=== PATIENT | female | born 1985 | race Caucasian/White ===

== ENCOUNTER → 2022-06-15 10:26 | Outpatient (BNVA) | payer BC, MEDICAID, SELFPAY | PROVIDERS: Visit Provider Nurse Practitioner Family | DX: R51.9 Headache, unspecified (principal) | CPT/HCPCS: 80053; 84443; 85025 ==

== ENCOUNTER 2022-06-29 15:06 | Emergency (ER) | payer BC, MEDICAID, SELFPAY ==
[2022-06-29 15:34] VITALS: BP 144/83; PULSE 74; RESP 16; TEMP 36.6; O2SAT 99; BMI 43.0
== END 2022-06-29 19:04 | disposition left against medical advice (07) ==
PROVIDERS: Emergency Provider Family Medicine
DX: Z53.21 Procedure and treatment not carried out due to patient leaving prior to being seen by health care provider (principal); R51.9 Headache, unspecified

== ENCOUNTER → 2022-10-31 09:01 | Outpatient (BNVA) | payer MEDICAID, SELFPAY | PROVIDERS: Visit Provider Nurse Practitioner Family | DX: N91.2 Amenorrhea, unspecified (principal); O03.9 Complete or unspecified spontaneous abortion without complication | CPT/HCPCS: 80053; 84702 ==

== ENCOUNTER 2023-09-20 14:04 | Oncology outpatient (recurring) (ONCR) | payer MEDICAID, SELFPAY ==
[2023-09-20 15:51] VITALS: BP 126/81; PULSE 89; RESP 16; TEMP 36.3; O2SAT 98
== END 2023-10-04 23:59 | disposition home or self-care (01) ==
LOC: ONCMED 14:05
PROVIDERS: PCP Family Medicine; Visit Provider Family Medicine
DX: Z67.90 Unspecified blood type, Rh positive; O36.0990 Maternal care for other rhesus isoimmunization, unspecified trimester, not applicable or unspecified
CPT/HCPCS: 80503; 86850; 86870; 86900; 90384

== ENCOUNTER 2023-11-20 19:40 | Outpatient (CLI) | payer MEDICAID, SELFPAY ==
[2023-11-20 20:20] VITALS: BP 111/65; PULSE 85
[2023-11-20 20:35] VITALS: BP 105/65; PULSE 83
[2023-11-20 20:50] VITALS: BP 117/72; PULSE 83
[2023-11-20 20:51] VITALS: TEMP 35.9
[2023-11-20 20:57] VITALS: TEMP 36.6; BMI 47.6
[2023-11-20 21:01] VITALS: BP 117/72; PULSE 83; RESP 15; TEMP 36.6; O2SAT 99
== END 2023-11-20 21:02 | disposition home or self-care (01) ==
LOC: OPOB 19:48 → OBGYN 20:10
PROVIDERS: PCP Nurse Practitioner Family; Visit Provider Family Medicine
DX: O26.899 Other specified pregnancy related conditions, unspecified trimester (principal); Z3A.00 Weeks of gestation of pregnancy not specified; M54.9 Dorsalgia, unspecified
CPT/HCPCS: 59025; 99211

== ENCOUNTER 2023-11-22 13:29 | Outpatient (CLI) | payer MEDICAID, SELFPAY ==
[2023-11-22 13:39] VITALS: RESP 16; TEMP 36.1
[2023-11-22 13:40] VITALS: BMI 48.0
[2023-11-22 14:25] VITALS: BP 113/59; PULSE 98; RESP 16; TEMP 36.1
== END 2023-11-22 14:25 | disposition home or self-care (01) ==
LOC: OPOB 13:29 → OBGYN 13:30
PROVIDERS: PCP Nurse Practitioner Family; Visit Provider Family Medicine
DX: O09.519 Supervision of elderly primigravida, unspecified trimester (principal); Z3A.00 Weeks of gestation of pregnancy not specified
CPT/HCPCS: 59025; 99211

== ENCOUNTER 2023-11-28 12:56 | Outpatient (CLI) | payer MEDICAID, SELFPAY ==
[2023-11-28 13:19] VITALS: BMI 47.8
== END 2023-11-28 14:04 ==
LOC: OPOB 13:00 → OBGYN 13:04
PROVIDERS: PCP Nurse Practitioner Family; Visit Provider Family Medicine
DX: O26.899 Other specified pregnancy related conditions, unspecified trimester (principal); Z3A.00 Weeks of gestation of pregnancy not specified
CPT/HCPCS: 59025; 99211

== ENCOUNTER 2023-12-03 13:11 | Outpatient (CLI) | payer MEDICAID, SELFPAY ==
[2023-12-03 13:16] VITALS: BP 138/85; PULSE 85
[2023-12-03 13:32] VITALS: BP 127/73; PULSE 80
== END 2023-12-03 13:43 | disposition home or self-care (01) ==
LOC: OPOB 13:11 → OBGYN 13:14
PROVIDERS: PCP Nurse Practitioner Family; Visit Provider Family Medicine
DX: O09.519 Supervision of elderly primigravida, unspecified trimester (principal); Z3A.00 Weeks of gestation of pregnancy not specified
CPT/HCPCS: 59025

== ENCOUNTER 2023-12-04 01:31 | Inpatient (IN) | payer MEDICAID, SELFPAY ==
[2023-12-03 23:43] VITALS: TEMP 35.6
[2023-12-03 23:44] VITALS: BP 123/84; PULSE 136
[2023-12-03 23:46] VITALS: TEMP 35.7
[2023-12-04] VITALS (146 sets, daily range): BP systolic 92–144; BP diastolic 49–82; PULSE 70–111; RESP 16–18; TEMP 35.2–36.9; O2SAT 81–100; BMI 40.2; BMI 47.2
[2023-12-04 00:32] LABS: Nitrazine Paper, PH Positive
[2023-12-04 00:36] LABS: Basophils % 0.2 %; Eosinophils % 0.3 %; Hematocrit 34.1 % (36-47); Lymphocytes # 2.4 10^3/uL (0.8-4.8); Lymphocytes % 16.1 %; Mean Corpuscular Hemoglobin 27.5 pg (27-33); Mean Corpuscular Volume 85.9 fl (85-98); Mean Platelet Volume 11.5 fL (7.4-10.4); Monocytes # 0.7 10^3/uL (0.2-0.9); Monocytes % 4.7 %; Neutrophils # 11.75 10^3/uL (1.8-7.7); Neutrophils % 78.1 %; Nucleated Red Blood Cells % 0 %; Platelet Count 352 10^3/cmm (157-399); Red Blood Count 3.97 10^6/uL (3.85-5.65); Red Cell Distribution Width 12.6 % (12.1-15.1); White Blood Count 15.03 10^3/uL (3.29-11.43)
[2023-12-04] MEDS: dextrose 5%-lactated ringers 1,000 ML 125 ML IV ×3 (01:17→20:30)
[2023-12-04] MEDS: vancomycin 2,000 MG/400 ML PIGGYBACK 200 MG IV ×3 (01:17→17:18)
[2023-12-04] MEDS: lactated ringers 1,000 ML 999 ML IV ×4 (01:54→17:18)
--- NOTE | 2023-12-04 02:45 | ANES.PAUD2 ---
Pre-Anesthetic Update Pre-Anesthetic Assessment: Date of Surgery/Procedure: 12/04/23 Any changes to Pre-Anesthetic Assessment?: No Labs Last 48hrs: Short CBC 12/04/23 Range/Units 00:20 WBC 15.03 H (3.29-11.43) 10^ 3/uL Hgb 10.90 L (11.27-16.99) g/ dL Hct 34.1 L (36-47) % MCV 85.9 (85-98) fl Plt Count 352 (157-399) 10^3/c mm Neut % (Auto) 78.1 % Neut # (Auto) 11.75 H (1.8-7.7) 10^3/u L Blood Bank 12/04/23 00:20 Blood Type A Negative Rho(D) Type Negative Antibody Screen Negative Vitals: Temperature 96.6 F L 12/04/23 01:05 Temperature Source Oral 12/04/23 00:08 Pulse Rate 83 12/04/23 02:39 Pulse Rhythm Regular 12/04/23 00:34 Pulse Strength 3+ Normal 12/04/23 00:34 Respiratory Rate 16 12/04/23 00:08 Respiratory Effort Spontaneous, Non- Labored 12/04/23 00:34 Respiratory Depth Normal 12/04/23 00:34 Respiratory Patter n Normal 12/04/23 00:34 Blood Pressure 143/82 12/04/23 02:39 Pulse Oximetry 99 12/04/23 02:37 Oxygen Delivery Me thod Room Air 12/04/23 00:34 Exam: Pre-Anes Outpt Exam: alert, oriented x 3, clear to auscultation bilaterally and regular rate & rhythm Cardiac Studies: No Data to Display
--- NOTE | 2023-12-04 02:46 | ANES.PROC ---
Anesthesia Procedures Procedure/Date: 12/04/23 Epidural: Time Out Performed: Yes Consents Signed: Procedure Consent Consent: requested by attending/covering physician, from patient, risks and benefits reviewed and patient agrees to proceed Lumbar Level: L2-L3 Epidural position: sitting Epidural procedure: sterile prep of area, 1% lidocaine to numb the area, 18 g needle, negative for paresthesia passed (Right resolved), 1.5% xylocaine 1:200k epi, 0.2% Ropivacaine bolus ml (4cc and fentanyl 100mcg), no systemic response, sterile dressing applied, L.U.D. no apparent complications and 0.2% Ropiavacaine @ mls/hr (10cc/hour. Pt tolerated well)
[2023-12-04] MEDS: ROPivacaine syringe 100 MG/50 ML SYRINGE 10 MG EPIDURAL ×4 (02:51→12:57)
[2023-12-04] MEDS: hyDROXYzine 25 mg Capsule 50 MG PO (03:45)
--- NOTE | 2023-12-04 03:52 | PC.NURSE ---
Pt stated she was allergic to betadine when prepping for walker catheter. This RN used baby soap and water to perform eduard care then proceeded with sterile technique to insert catheter. Pt tolerated well.
--- NOTE | 2023-12-04 06:34 | PC.NURSE ---
This RN responded to an emergency light that was pulled at approximately 0601. When entering the room STEFANY Malone was at bedside applying oxygen and taking vitals and stated pt said she was feeling dizzy, lightheaded, and didn't feel right. Stefany Malone stated she heard decreased FHT's. This RN, Stefany RN, Truman MCCALL, and dioni Bailey assisted with turning the patient right laterally and starting a fluid bolus. This RN got a sterile glove and did SVE 3/75%/-3. This RN asked Stefany to call Dr. Lubin and give her an update on what happened. FHT still inaudible at this time. This RN asked Lynn to go get an FSE. FSE was brought and this RN inserted without difficulty at approx 0608. FHT in 150's. Repositioned pt and STEFANY Malone remained at bedside while I stepped out to call Dr. Lubin with update.
[2023-12-04] MEDS: oxytocin 30 UNIT/500 ML BAG IV (07:50)
[2023-12-04] MEDS: diphenhydrAMINE 50 mg/mL SDV 1mL 25 MG IVP (08:55)
--- NOTE | 2023-12-04 10:46 | PM.MISC ---
Miscellaneous Note Purpose of Documentation: New onset R sided pain Note: Epidural working well, until now, then feeling R sided pain. bolused with bupivicaine 0.25% 9 cc and pushed bolus button with mild to moderate improvement. patient states she thinks she can tolerate remaining labor with current epidural.
--- NOTE | 2023-12-04 12:39 | PM.OPHPUD ---
Labor & Delivery H&P Update Date of Procedure: December 04, 2023 Date H&P Performed: 12/03/23 Admission Diagnosis: IUP at 39w 4d gestation with SROM GBS carrier AMA suspected macrosomia morbid obesity Planned procedure: Expectant management of labor and delivery
--- NOTE | 2023-12-04 12:41 | P.PN_ITS ---
Subjective 2 Subjective: Late documentation from 624 I was called by nursing due to loss of heart tones. The patient herself was not feeling well. She had an episode of feeling very hot and faint. It was at that time that they were helping the mother that heart tones were lost and it took a a while for them to reestablish them via scalp electrode. When I presented the heart tones were in the 140s with moderate variability. Vitals/I&O/Wt Last Vital Signs Temp 96.1 F L 12/04/23 10:46 Pulse 75 12/04/23 12:33 Resp 16 12/04/23 00:08 BP 123/59 12/04/23 12:33 Pulse Ox 97 12/04/23 09:28 O2 Del Method Non-Rebreather 12/04/23 06:02 O2 Flow Rate 10 12/04/23 06:02 12/03/23 12/04/23 12/04/23 22:59 06:59 14:59 Intake Total 3112.184 / 3112.184 464.833 / 464.833 Balance 3112.184 / 3112.184 464.833 / 464.833 Weight last 48 hrs Weight 109.769 kg Weight 109.769 kg Physical Exam 2 Narrative: Mother was laying on her left side with the peanut ball between her legs and oxygen mask in place. She states that she was feeling better. Her blood pressure is a little low in the 90s over 50s however the cuff is on her left arm, not snug and she is laying on her right side. Urinary Catheter Management: Moise: Cath Placed During This Visit: yes Reason for Continuing Indwelling Catheter: Required Immobilization for Trauma or Surgery or Anesthesia Urinary Catheter Date of Insertion: 12/04/23 Urinary Catheter Time of Insertion: 03:42 Data 12/04/23 00:20 A&P Assessment and plan (1) Active labor at term: Expectant management of labor and delivery (2) GBS (group B Streptococcus carrier), +RV culture, currently : She is allergic to penicillins and cephalosporins, she is status post 1 dose of vancomycin. According to a family member they feel that her episode was related to an allergic reaction to the vancomycin. The family member states that she was complaining of her lips tingling and swelling. The family member states that she had a rash and facial swelling as well. Nurses had done a full exam at that time and did not notice any abnormalities. The patient was given Vistaril for itching with good results. I discussed with the patient that we are running out of antibiotics to use if she is allergic to penicillin cephalosporins and now vancomycin. I explained that I do not consider this a true allergy to the vancomycin and I encouraged her to try a another dose of the vancomycin while she is here in the hospital we would be able to deal with any possible anaphylactic reaction should it occur. Given the circumstances I feel the likelihood of that is low. (3) Advanced maternal age (AMA) in : (4) macrosomia during in third trimester: Monitor for any signs and symptoms of failure to progress. low tolerance for c- section. (5) Morbid obesity: Attestations 2 Medical Necessity Statement*: Expectant management of labor and delivery Coding Level of Care Code Acute Code for Chg Fwd Diagnoses Active labor at term GBS (group B Streptococcus carrier), +RV culture, currently O99.820 Advanced maternal age (AMA) in macrosomia during in third trimester O36.63X0 Morbid obesity E66.01
[2023-12-04] MEDS: ROPivacaine syringe 100 MG/50 ML SYRINGE 13 MG EPIDURAL (15:11)
[2023-12-04] MEDS: metoclopramide 5 mg/mL SDV 2 mL 10 MG IV (17:22)
[2023-12-04] MEDS: citric acid-sodium citrate 30 mL UDC PO (17:22)
[2023-12-04] MEDS: famotidine 20 mg/2 mL INJ IVP (17:22)
--- NOTE | 2023-12-04 18:59 | PM.OP ---
Operative Report Date of procedure: December 04, 2023 Pre-op diagnosis: Failure to descend IUP at 39 weeks 4 days gestation Suspected macrosomia Advanced maternal age Maternal group B strep carrier Morbid obesity Post-op diagnosis: Same Procedure done: Primary low-transverse section Via Pfannenstiel skin incision Specimens removed/disposition: Vertex male weight 4340 g, 9 pounds 9 ounces, Apgars 8 and 9 Surgeon: Lisandra Lubin MD Anesthesia: Epidural Estimated blood loss (mL): 800 IV fluids (mL): 1,100 Urine output (mL): 100 Complications: None Brief History: The patient was complete and pushing for over 40 minutes without any descent of the presenting part. Decision was made to proceed with section Procedure: After informed consent the patient was taken to the OR where adequate epidural anesthesia was verified. She was prepped and draped in normal sterile fashion in dorsal supine position with a left lateral tilt. A Pfannenstiel skin incision was made through the skin and carried through to the underlying layer of fascia sharply. There was a subcutaneous bleeder that was grasped with a hemostat and coagulated using the Bovie. The fascia was then extended laterally using the Mayos. The fascia was grasped with [place] clamps and the underlying rectus muscles were dissected off. Some diastases of the rectus muscles was already present. The peritoneum was then entered digitally and the incision site was manually stretched. The bladder blade was inserted. The vesicouterine peritoneum was identified and entered sharply using the Metzenbaums. The bladder flap was then created digitally and the bladder blade was reinserted. Uterine incision was made in a transverse fashion in the lower uterine segment. Amniotic rupture membranes was performed sharply and clear fluid was noted. The was delivered in vertex presentation without complication. At delivery he was bulb suctioned at the mouth and naris. The cord was clamped and cut. The infant was handed to the waiting pediatric nurse. Cord blood was obtained. The placenta was delivered using fundal pressure. The uterus was then exteriorized from the abdomen and a dry sponge was used to clear the uterus of clots and debris. The uterus was noted to be very large and hypertrophic. There was brisk bleeding from the lower uterine segment as it was very edematous. The uterine incision was repaired using 0 chromic in a running locked fashion. A second layer of the same suture was used in an imbricating manner. Excellent hemostasis was obtained. The uterus was then returned to the abdomen. Irrigation was used to clear the gutters of clots and debris. The uterine incision was then reinspected for hemostasis. There was a small superficial bleeder that was coagulated using the Bovie. The peritoneum was then reapproximated using 4-0 Vicryl in a running fashion. The subfascial tissue was inspected for hemostasis and the fascia was then reapproximated using 0 Vicryl in a running fashion. The subcutaneous tissue was then irrigated and any small bleeders were coagulated using the Bovie. The subcutaneous tissue was then reapproximated using 4-0 Vicryl in a running fashion. The skin was then reapproximated using 4-0 Vicryl on a Delta needle. Steri-Strips and a pressure bandage were applied patient went to recovery in good condition. Sponge instrument and needle counts were correct.
[2023-12-04] MEDS: ketorolac 30 mg/mL INJ IVP (20:32)
[2023-12-05] MEDS: ketorolac 30 mg/mL INJ IVP ×3 (03:03→15:20)
[2023-12-05] MEDS: dextrose 5%-lactated ringers 1,000 ML 125 ML IV (06:03)
[2023-12-05 08:17] LABS: Hematocrit 25.6 % (36-47); Mean Corpuscular HGB Conc 31.3 g/dL (30-55); Mean Corpuscular Hemoglobin 27.9 pg (27-33); Mean Corpuscular Volume 89.2 fl (85-98); Mean Platelet Volume 11.8 fL (7.4-10.4); Platelet Count 261 10^3/cmm (157-399); Red Blood Count 2.87 10^6/uL (3.85-5.65); Red Cell Distribution Width 13.2 % (12.1-15.1)
[2023-12-05 09:16] VITALS: BP 128/81; PULSE 87; RESP 17; TEMP 36.5; O2SAT 96
[2023-12-05] MEDS: docusate sodium 100 mg Capsule PO ×2 (09:36→20:21)
[2023-12-05] MEDS: ferrous sulfate EC 325 mg Tablet PO ×2 (09:36→20:21)
--- NOTE | 2023-12-05 13:24 | ANE.PACU2 ---
Inpatient post-anesthesia follow up: Airway intact: Yes Vital signs: Temperature 97.7 F Pulse Rate 87 Respiratory Rate 17 Blood Pressure 128/81 Pulse Oximetry 96 Oxygen Delivery Me thod Room Air Oxygen Flow Rate 10 Fraction of Inspir ed Oxygen Hydration adequate: Yes Nausea and vomiting: No Pain level: 1 Mental status: Baseline Epidural Start/End: Epidural Start Date: 12/04/23 Epidural Start Time: 02:29 Epidural End Date: 12/04/23 Epidural End Time: 19:30
[2023-12-05 15:23] VITALS: BP 105/66; PULSE 95; RESP 17; O2SAT 96
[2023-12-05 15:29] VITALS: BP 105/66; PULSE 92; RESP 17; TEMP 36.9; O2SAT 97
--- NOTE | 2023-12-05 16:39 | P.PN_ITS ---
Subjective 2 Subjective: passing gas, pain off and on but not too bad, vaginal bleeding not bad, showered today Vitals/I&O/Wt Last Vital Signs Temp 98.5 F 12/05/23 15:29 Pulse 92 12/05/23 15:29 Resp 17 12/05/23 15:29 BP 105/66 12/05/23 15:29 Pulse Ox 97 12/05/23 15:29 O2 Del Method Room Air 12/05/23 15:29 O2 Flow Rate 10 12/04/23 06:02 12/05/23 12/05/23 12/05/23 06:59 14:59 22:59 Intake Total 1000 / 3722.233 0 / 0 Output Total 550 / 3650 Balance 450 / 72.233 0 / 0 Weight last 48 hrs Weight 109.769 kg Weight 109.769 kg Physical Exam 2 Narrative: easily arousable, rrr, cta b, soft, appropriate postoperative tenderness, incision c/i with moist steri-strips, 2+ edema but no calf tenderness. Urinary Catheter Management: Moise: Cath Placed During This Visit: yes, but has since been removed by the nurse Reason for Continuing Indwelling Catheter: Decision to DC Catheter Urinary Catheter Date of Insertion: 12/04/23 Urinary Catheter Time of Insertion: 17:10 Date Urinary Catheter Removed: 12/05/23 Time Urinary Catheter Discontinued: 09:16 Data 12/05/23 07:37 A&P Assessment and plan (1) Status post primary low transverse section: POD 1 doing well, cont routine post operative care. Attestations 2 Medical Necessity Statement*: routine postoperative care Coding Level of Care Code Acute Code for Chg Fwd Diagnoses Status post primary low transverse section Z98.891
[2023-12-05 22:59] VITALS: BP 133/87; PULSE 100; RESP 16; TEMP 36.7; O2SAT 98
[2023-12-06] MEDS: acetaminophen 325 mg Tablet 650 MG PO ×2 (00:21→14:01)
[2023-12-06 04:19] VITALS: BP 118/72; PULSE 92; RESP 16; TEMP 36.6; O2SAT 95
[2023-12-06] MEDS: HYDROcodone-acetaminophen 5-325 mg Tablet PO (04:28)
[2023-12-06] MEDS: docusate sodium 100 mg Capsule PO (09:11)
[2023-12-06] MEDS: ferrous sulfate EC 325 mg Tablet PO (09:11)
[2023-12-06] MEDS: ibuprofen 800 mg tablet PO ×2 (09:11→16:05)
[2023-12-06 16:10] VITALS: BP 130/81; PULSE 111; RESP 16; TEMP 36.6
--- NOTE | 2023-12-06 16:50 | P.DS_ITS ---
Discharge Providers Date of Admission: 12/04/23 01: Date of Discharge: December 06, 2023 Attending Provider at Admission: Liasndra Lubin MD Attending Provider at Discharge: Lisandra Lubin MD Primary Care Provider: Ivonne Buchanan NP Diagnoses at Discharge Discharge Diagnosis (1) Status post primary low transverse section: Status: Acute Reason for Visit Reason for Visit: possible srom Hospital Course Hospital Course This is a 38-year-old G3 now P2 who had a primary section for failure to descend. She had a viable male infant weight 9 pounds 9 ounces. She has done well postoperatively. She is ambulating, tolerating a regular diet, has pain control with oral medications and is comfortable with discharge home. Physical Exam Narrative: Alert and oriented sitting in bedside chair, heart regular rate and rhythm, lungs clear to auscultation bilaterally, abdomen is soft, fundus is firm and U - 2, abdomen has appropriate postoperative tenderness, incision is intact with moist Steri-Strips, extremities have 1+ edema but no calf tenderness Urinary Catheter Management: Moise: Cath Placed During This Visit: yes, but has since been removed by the nurse Reason for Continuing Indwelling Catheter: Decision to DC Catheter Urinary Catheter Date of Insertion: 12/04/23 Urinary Catheter Time of Insertion: 17:10 Date Urinary Catheter Removed: 12/05/23 Time Urinary Catheter Discontinued: 09:16 Discharge Data Studies Completed and Pending Laboratory Results WBC 15.00 10^3/uL (3.29-11.43) H 12/05/23 07:37 RBC 2.87 10^6/uL (3.85-5.65) L 12/05/23 07:37 Hgb 8.00 g/dL (11.27-16.99) L 12/05/23 07:37 Hct 25.6 % (36-47) L 12/05/23 07:37 MCV 89.2 fl (85-98) 12/05/23 07:37 MCH 27.9 pg (27-33) 12/05/23 07:37 MCHC 31.3 g/dL (30-55) 12/05/23 07:37 RDW 13.2 % (12.1-15.1) 12/05/23 07:37 Plt Count 261 10^3/cmm (157-399) 12/05/23 07:37 MPV 11.8 fL (7.4-10.4) H 12/05/23 07:37 Neut % (Auto) 78.1 % 12/04/23 00:20 Lymph % (Auto) 16.1 % 12/04/23 00:20 [place] % (Auto) 4.7 % 12/04/23 00:20 Eos % (Auto) 0.3 % 12/04/23 00:20 Baso % (Auto) 0.2 % 12/04/23 00:20 Neut # (Auto) 11.75 10^3/uL (1.8-7.7) H 12/04/23 00:20 Lymph # (Auto) 2.4 10^3/uL (0.8-4.8) 12/04/23 00:20 [place] # (Auto) 0.7 10^3/uL (0.2-0.9) 12/04/23 00:20 Eos # (Auto) 0.0 10^3/uL (0.0-0.8) 12/04/23 00:20 Baso # (Auto) 0.0 10^3/uL (0.0-0.1) 12/04/23 00:20 Nucleated RBC % (auto) 0 % 12/04/23 00:20 Nucleated RBCs # 0.0 /100WBC 12/04/23 00:20 Fluid pH (paper) Positive H 12/04/23 00:09 Blood Type A Negative 12/04/23 00:20 Rho(D) Type Negative 12/04/23 00:20 Antibody Screen Negative 12/04/23 00:20 Screen Negative (Negative) 12/05/23 07:37 Vitals Last Vital Signs Temp 97.9 F 12/06/23 16:10 Pulse 111 H 12/06/23 16:10 Resp 16 12/06/23 16:10 BP 130/81 12/06/23 16:10 Pulse Ox 95 12/06/23 04:19 O2 Del Method Room Air 12/06/23 16:10 O2 Flow Rate 10 12/04/23 06:02 Discharge Plan Discharge Patient Disposition: Home Condition: Stable Prescriptions: New ibuprofen 800 mg Tablet 800 mg PO TID PRN (Reason: Abdominal Discomfort) Qty: 40 0RF hydrocodone-acetaminophen 5-325 mg Tablet 1 - 2 tab PO Q4H PRN (Reason: Moderate To Severe Pain) Qty: 12 0RF docusate sodium 100 mg Capsule 100 mg PO BID Qty: 60 0RF Continued ondansetron 4 mg tablet,disintegrating 4 mg PO Q8H albuterol sulfate 90 mcg/actuation HFA aerosol inhaler 2 puff inhalation Q6H PRN (Reason: Bronchospasm) Discharge Orders: Discharge Order (Routine); Ordered 12/06/23 Ordered By: Lisandra Lubin Referrals: Lisandra Lubin MD [Physician] - 4-7 days Discharge Diet: Usual diet Discharge Activity: Limit activity as instructed Patient Instructions: Depression (GEN), Bleeding (GEN), Hemorrhage (GEN), OB - Jass/Amee, OB Food/Drug Interaction Guide, OB Care at Home, Opioid Safety, OB Home Care, Abnormal Bleeding Discharge Attestations Time Spent in Discharge Care*: less than 30 min Quality Metrics Clinical Quality Measures [ No reported AMI, CVA or VTE this stay] Coding Level of Care Code Acute Code for Chg Fwd Diagnoses Status post primary low transverse section Z98.891
[2023-12-06 18:00] VITALS: BP 139/91; PULSE 97; RESP 17; TEMP 36.6
== END 2023-12-06 18:20 | disposition home or self-care (01) | DRG 788 ==
LOC: OPOB 01:31 → OBGYN 01:31
PROVIDERS: Admitting Provider Family Medicine; PCP Nurse Practitioner Family; Visit Provider Family Medicine
PROC: 10D00Z1 Extraction of Products of Conception, Low, Open Approach (ICD-10-PCS; CPT 59514; principal; 2023-12-04 18:00)
DX: O36.63X0 Maternal care for excessive fetal growth, third trimester, not applicable or unspecified (principal); O99.214 Obesity complicating childbirth; E66.01 Morbid (severe) obesity due to excess calories; O99.824 Streptococcus B carrier state complicating childbirth; O32.4XX0 Maternal care for high head at term, not applicable or unspecified; O76 Abnormality in fetal heart rate and rhythm complicating labor and delivery; Z3A.39 39 weeks gestation of pregnancy; Z37.0 Single live birth; O75.89 Other specified complications of labor and delivery; O9A.22 Injury, poisoning and certain other consequences of external causes complicating childbirth; L29.9 Pruritus, unspecified; T36.8X5A Adverse effect of other systemic antibiotics, initial encounter; Y92.230 Patient room in hospital as the place of occurrence of the external cause; N85.2 Hypertrophy of uterus
CPT/HCPCS: 36415; 36430; 51702; 59025; 59409; 83986; 85025; 85027; 85460; 86850; 86900; 90384; 96374; 96376; 99211; J1200; J1885; J2274; J2590; J2765; J2795; J3010; J3372; J3490; J7030; J7120; J7121